=== PATIENT | female | born 1940 | race Two or more races ===

== ENCOUNTER 2017-10-10 17:42 | Emergency (ER) | payer OTHER ==
[~2017-10-10] VITALS: Ht 144.8 cm; Wt 56.7 kg
[2017-10-10] MEDS ORDERED: LORAZEPAM1 MG PO (17:56)
[2017-10-10] MEDS ORDERED: PLAVIX75 MG PO (17:57)
[2017-10-10] MEDS ORDERED: ROSUVASTATIN CA40 MG PO (17:57)
[2017-10-10] MEDS ORDERED: AVAPRO300 MG PO (17:57)
[2017-10-10] MEDS ORDERED: ASPIRIN LOW-STR81 M1 (17:58)
[2017-10-10] MEDS ORDERED: CLOPIDOGREL BIS75 MG PO (17:58)
[2017-10-10] MEDS ORDERED: NAMENDA10 MG PO (17:58)
[2017-10-10] MEDS ORDERED: LANTUS SOL100 UNIT/1 (17:59)
[2017-10-10] MEDS ORDERED: JANUMET 50-1,01 EACH PO (17:59)
[2017-10-10] MEDS ORDERED: DONEPEZIL HCL10 MG PO (18:00)
== END 2017-10-10 23:12 | disposition home or self-care (01) ==
LOC: ER 17:42
DX: K52.89 Other specified noninfective gastroenteritis and colitis (principal)